=== PATIENT | male | born 1960 | race Caucasian/White ===

== ENCOUNTER 2022-03-06 05:51 | Day surgery (SDC) | payer BC ==
[2022-03-01 09:56] LABS: BASOPHILS % (AUTO) 0.7 % (0-1); EOSINOPHILS # (AUTO) 0.2 X10'3 (0-0.9); EOSINOPHILS % (AUTO) 4.4 % (0-6); LYMPHOCYTES # (AUTO) 1.2 X10'3 (1.1-4.8); LYMPHOCYTES % (AUTO) 26.1 % (21-51); MEAN CORPUSCULAR HEMOGLOBIN 30.9 PG (27.0-31.0); MEAN CORPUSCULAR HGB CONC 33.9 g/dL (33.0-36.5); MEAN CORPUSCULAR VOLUME 91.3 FL (78-98); MEAN PLATELET VOLUME 7.8 FL (7.4-10.4); MONOCYTES # (AUTO) 0.5 X10'3 (0-0.9); MONOCYTES % (AUTO) 11.5 % (2-12); NEUTROPHILS # (AUTO) 2.7 X10'3 (1.8-7.7); NEUTROPHILS % (AUTO) 57.3 % (42-75); PRE OP HEMATOCRIT 44.6 % (42.0-52.0); PRE OP HEMOGLOBIN 15.1 g/dL (14.0-17.9); PRE OP PLATELET COUNT 183 X10'3 (140-440); RED BLOOD COUNT 4.89 X10'6 (4.70-6.10); RED CELL DISTRIBUTION WIDTH 12.8 % (11.5-14.5)
[2022-03-01 10:13] LABS: ALBUMIN 4.1 G/DL (3.4-5.0); ALBUMIN/GLOBULIN RATIO 1.1 (1.1-1.5); ALKALINE PHOSPHATASE 61 IU/L (46-116); BLOOD UREA NITROGEN 21 MG/DL (7-18); BUN/CREATININE RATIO 16.9 (5.4-32.0); CALCIUM 8.6 MG/DL (8.5-10.1); CHLORIDE 105 MMOL/L (99-107); CREATININE 1.24 MG/DL (0.60-1.10); PRE OP ALT 74 U/L (30-65); PRE OP ANION GAP 6 (8-16); PRE OP AST 32 U/L (10-37); PRE OP BILIRUB, TOTAL 0.9 MG/DL (0.0-1.0); PRE OP GLUCOSE 86 MG/DL (70-104); PRE OP POTASSIUM 4.3 MMOL/L (3.4-5.1); PRE OP SODIUM 140 MMOL/L (135-145); TOTAL PROTEIN 7.8 G/DL (6.4-8.2); eGFR 59 ML/MIN
[2022-03-06] VITALS (9 sets, daily range): BP systolic 120–149; BP diastolic 69–92
[~2022-03-06] VITALS: Ht 193 cm; Wt 113.5 kg
[~2022-03-06 05:51] MED LIST: APIX5TAB3 PO; ASCO-134 PO; CYCL-1 PO; FLO0.4C PO; GABA-530 PO; NAPR220T67 PO; VITA400T10 PO; ceFAZolin inj. 2,000 MG in dextrose 5%-water 100 ML IV ONE; famotidine 20mg tablet PO ONE; ringers solution, lacted 1,000 ML IV SCH
[2022-03-06] MEDS ORDERED: BUPIVAcaine/PF 2.5 mg/ml (0.25%) 30ml vial ONE (06:58)
[2022-03-06] MEDS ORDERED: LIDOcaine 0.5% (5mg/ml) 50ml vial ONE (07:09)
[2022-03-06] MEDS ORDERED: morphine 2 MG/ML inj. syringe IV PRN (07:15)
[2022-03-06] MEDS ORDERED: ondansetron/PF 4mg/2ml inj IV PRN (07:15)
[2022-03-06] MEDS ORDERED: labetalol 20mg/4ml (5mg/ml) syringe IV PRN (07:15)
[2022-03-06] MEDS ORDERED: morphine 4 MG/ML inj SYRINge IV PRN (07:15)
[2022-03-06] MEDS ORDERED: ringers solution, lacted 1,000 ML IV SCH (07:15)
[2022-03-06] MEDS ORDERED: fentaNYL/PF 50MCG/1 ML 2ML syringe IV PRN ×2 (07:15)
[2022-03-06] MEDS ORDERED: hydrALAZINE 20mg/ml inj. IV PRN (07:15)
[2022-03-06] MEDS ORDERED: fentaNYL/PF 50MCG/1 ML 2ML syringe ONE (07:54)
[2022-03-06] MEDS ORDERED: MIDAZolam 1 MG/ML 5ML VIAL ONE (07:55)
--- NOTE | 2022-03-06 08:16 | NUR ---
Received from OR via [facility], accompanied by Anesthesiologist and report given by Eric Anesthesiologist. PATIENT WAKING UP, DENIES PAIN, V/S WNL, 20G TO LUE, RIGHT WRIST DRESSING CDI. ICE AND ELEVATED RUE. Addendum: 03/06/22 at 0825 by Kamari Watson RN Amended: Links added.
--- NOTE | 2022-03-06 09:21 | NUR ---
ALL DISCHARGE CRITERIA HAS BEEN MET. VSS, PAIN AT A TOLERABLE LEVEL, VOIDING AND ABLE TO SAFELY AMBULATE AND TRANSFER SELF. IV TAKEN OUT WITHOUT ANY COMPLICATIONS. ALL DISCHARGE INSTRUCTIONS COVERED WITH PATIENT AND ALL QUESTIONS ANSWERED. PATIENT TAKEN OUT VIA WHEELCHAIR TO PERSONAL VEHICLE WHERE FAMILY DROVE PATIENT HOME. Addendum: 03/06/22 at 0932 by Kamari Watson RN Amended: Links added.
== END 2022-03-06 09:21 | disposition home or self-care (01) ==
LOC: PAS 05:51
PROVIDERS: ATTEND Orthopaedic Surgery Hand Surgery
DX: G56.01 Carpal tunnel syndrome, right upper limb (principal); M17.11 Unilateral primary osteoarthritis, right knee; Z79.899 Other long term (current) drug therapy; Z98.890 Other specified postprocedural states; Z88.1 Allergy status to other antibiotic agents; Z86.718 Personal history of other venous thrombosis and embolism
CPT/HCPCS: 29848; 36415; 80053; 82948; 85025; 87811; 93005; J0690; J2250; J3010; J3490; J7030; J7060; J7120; Z7506; Z7512; A4215; A6449

== ENCOUNTER 2022-06-09 08:20 | Day surgery (SDC) | payer BC ==
[2022-05-31 14:40] LABS: BASOPHILS % (AUTO) 0.6 % (0-1); EOSINOPHILS # (AUTO) 0.2 X10'3 (0-0.9); EOSINOPHILS % (AUTO) 3.5 % (0-6); LYMPHOCYTES # (AUTO) 1.4 X10'3 (1.1-4.8); LYMPHOCYTES % (AUTO) 25.5 % (21-51); MEAN CORPUSCULAR HEMOGLOBIN 31.4 PG (27.0-31.0); MEAN CORPUSCULAR HGB CONC 34.1 g/dL (33.0-36.5); MEAN CORPUSCULAR VOLUME 92.1 FL (78-98); MEAN PLATELET VOLUME 7.6 FL (7.4-10.4); MONOCYTES # (AUTO) 0.5 X10'3 (0-0.9); MONOCYTES % (AUTO) 9.9 % (2-12); NEUTROPHILS # (AUTO) 3.3 X10'3 (1.8-7.7); NEUTROPHILS % (AUTO) 60.5 % (42-75); PRE OP HEMATOCRIT 45.1 % (42.0-52.0); PRE OP HEMOGLOBIN 15.4 g/dL (14.0-17.9); PRE OP PLATELET COUNT 180 X10'3 (140-440); RED BLOOD COUNT 4.89 X10'6 (4.70-6.10); RED CELL DISTRIBUTION WIDTH 12.7 % (11.5-14.5)
[2022-05-31 14:53] LABS: ALBUMIN 4.1 G/DL (3.4-5.0); ALBUMIN/GLOBULIN RATIO 1.3 (1.1-1.5); ALKALINE PHOSPHATASE 62 IU/L (46-116); BLOOD UREA NITROGEN 19 MG/DL (7-18); BUN/CREATININE RATIO 15.1 (5.4-32.0); CALCIUM 9.1 MG/DL (8.5-10.1); CHLORIDE 103 MMOL/L (99-107); CREATININE 1.26 MG/DL (0.60-1.10); PRE OP ANION GAP 6 (8-16); PRE OP AST 42 U/L (10-37); PRE OP BILIRUB, TOTAL 0.5 MG/DL (0.0-1.0); PRE OP GLUCOSE 108 MG/DL (70-104); PRE OP POTASSIUM 4.2 MMOL/L (3.4-5.1); PRE OP SODIUM 138 MMOL/L (135-145); TOTAL CARBON DIOXIDE 29.1 MMOL/L (24-32); TOTAL PROTEIN 7.2 G/DL (6.4-8.2); eGFR 58 ML/MIN
[2022-05-31 14:55] LABS: PRE OP ALT 106 U/L (30-65)
[2022-06-09] VITALS (7 sets, daily range): BP systolic 94–120; BP diastolic 63–79
[~2022-06-09] VITALS: Ht 193 cm; Wt 115.4 kg
[~2022-06-09 08:20] MED LIST changes: +CHOL100025 PO; +LIDOcaine 1% 30ml preserv. free vial ONE; -VITA400T10 PO
[2022-06-09] MEDS ORDERED: BUPIVAcaine/PF 2.5mg/ml (0.25%) 10ml vial ONE (12:05)
[2022-06-09] MEDS ORDERED: LIDOcaine 0.5% (5mg/ml) 50ml vial ONE (12:09)
[2022-06-09] MEDS ORDERED: fentaNYL/PF 50MCG/1 ML 2ML syringe ONE (12:20)
[2022-06-09] MEDS ORDERED: midazolam 1 mg/ML 2ml injection ONE ×2 (12:37→12:41)
[2022-06-09] MEDS ORDERED: labetalol 20mg/4ml (5mg/ml) syringe IV ONE (12:55)
--- NOTE | 2022-06-09 12:56 | NUR ---
Received from OR via [facility] , accompanied by Anesthesiologist AUR[facility]A and report given by Anesthesiolgist. PATIENT DENIES PAIN TO LEFT UE. + CAP REFILL AND + CSM TO ALL FINGERS AND THUMB. 20G PIV IN RIGHT UE WITH LR AT 100. Addendum: 06/09/22 at 1328 by Jerry Mosquera RN, RN Amended: Links added.
--- NOTE | 2022-06-09 13:46 | NUR ---
ALL DISCHARGE CRITERIA HAS BEEN MET. VSS, PAIN AT A TOLERABLE LEVEL, VOIDING AND ABLE TO SAFELY AMBULATE AND TRANSFER SELF. IV TAKEN OUT WITHOUT ANY COMPLICATIONS. ALL DISCHARGE INSTRUCTIONS COVERED WITH PATIENT AND ALL QUESTIONS ANSWERED. PATIENT TAKEN OUT VIA WHEELCHAIR TO PERSONAL VEHICLE WHERE FAMILY/FRIEND DROVE PATIENT HOME. Addendum: 06/09/22 at 1415 by Jerry Mosquera RN, RN Amended: Links added.
== END 2022-06-09 13:46 | disposition home or self-care (01) ==
LOC: PAS 08:20
PROVIDERS: ATTEND Orthopaedic Surgery Hand Surgery
DX: G56.02 Carpal tunnel syndrome, left upper limb (principal); G47.30 Sleep apnea, unspecified; M17.11 Unilateral primary osteoarthritis, right knee; Z79.899 Other long term (current) drug therapy; Z98.890 Other specified postprocedural states; Z88.8 Allergy status to other drugs, medicaments and biological substances
CPT/HCPCS: 29848; 36415; 80053; 82948; 85025; J0690; J2250; J3010; J3490; J7030; J7060; J7120; Z7506; Z7512; A4215; A6449; A7000